=== PATIENT | male | born 1955 | race Caucasian/White ===

== ENCOUNTER → 2021-02-13 | Outpatient (CLI) | payer MEDICARE, OTHER ==
[~2021-02-13] MED LIST: BACLOFEN10 MG PO; CELEBREX200 MG PO; ELIQUIS2.5 MG PO; ELIQUIS5 MG PO; FISH OIL 1,0001 EAC4 PO; FLOMAX 0.4 MG0.4 MG PO; FLOMAX0.4 MG PO; LIORESAL TAB 1010 MG PO; LYRICA75 MG PO; NORCO 10-325 T1 EACH PO; NORCO 5-325 TA1 EACH PO; PRINIVIL20 MG PO; ULTRAM50 MG PO; ZOCOR20 MG PO; ZOFRAN4 MG PO
[2021-02-13 09:43] LABS: RED BLOOD COUNT 6.02 M/UL (4.20-5.50); WHITE BLOOD COUNT 6.1 K/UL (4.5-11.0)
[2021-02-13 10:03] LABS: BUN/CREATININE RATIO 23 (0-10)
== END ==
LOC: OPSV2 08:49 → EDSTATUS 09:00 → OPSV2 09:00
PROVIDERS: Orthopaedic Surgery
DX: Z01.818 Encounter for other preprocedural examination (principal); M17.11 Unilateral primary osteoarthritis, right knee
CPT/HCPCS: 71046; 80048; 85025; 93005

== ENCOUNTER → 2021-02-26 | Outpatient (CLI) | payer MEDICARE, OTHER ==
[~2021-02-26] MED LIST changes: +HYDROCODON-ACE1 EAC2 PO
[2021-02-26 11:46] LABS: BUN/CREATININE RATIO 17 (0-10)
== END ==
LOC: LAB 10:24
PROVIDERS: Orthopaedic Surgery
DX: Z01.812 Encounter for preprocedural laboratory examination (principal)
CPT/HCPCS: 36415; 80048; 86850; 86900; 86901

== ENCOUNTER 2021-02-27 08:49 | Day surgery (SDC) | payer MEDICARE, OTHER ==
[~2021-02-27] VITALS: Ht 170.2 cm; Wt 105.7 kg
[~2021-02-27 08:49] MED LIST changes: -HYDROCODON-ACE1 EAC2 PO
[2021-02-27] MEDS ORDERED: HYDROCODON-ACE1 EAC2 PO (15:45)
[2021-02-27 16:12] LABS: HEMOGLOBIN 14.1 gm/dl (14.0-17.5)
[2021-02-28 07:46] LABS: HEMOGLOBIN 13.1 gm/dl (14.0-17.5); RED BLOOD COUNT 4.47 M/UL (4.20-5.50); WHITE BLOOD COUNT 11.9 K/UL (4.5-11.0)
[2021-02-28 08:03] LABS: BUN/CREATININE RATIO 18 (0-10)
== END 2021-02-28 15:20 | disposition home health service (06) ==
LOC: OR 08:49 → EDSTATUS 14:30 → OR 14:30 → M/S 16:20 → OR 02-28 15:20
PROVIDERS: Orthopaedic Surgery
DX: M17.11 Unilateral primary osteoarthritis, right knee (principal); G89.29 Other chronic pain; I10 Essential (primary) hypertension; E78.5 Hyperlipidemia, unspecified; I48.91 Unspecified atrial fibrillation; F11.20 Opioid dependence, uncomplicated; Z79.01 Long term (current) use of anticoagulants; Z79.899 Other long term (current) drug therapy; Z20.822 Contact with and (suspected) exposure to COVID-19
CPT/HCPCS: 36415; 73560; 80048; 85014; 85018; 85025; 97116-GP-CQ; 97161; 97166; 97535; C1776; J0171; J0592; J0690; J1100; J1170; J1200; J1885; J2400; J2405; J2704; J2795; J3370; J3475; J7120

== ENCOUNTER → 2021-05-24 | Outpatient (CLI) | payer MEDICARE, OTHER ==
[~2021-05-24] MED LIST changes: +HYDROCODON-ACE1 EAC2 PO
== END ==
LOC: KOH-I 12:25
DX: M25.522 Pain in left elbow (principal); M25.422 Effusion, left elbow
CPT/HCPCS: 73080